=== PATIENT | female | born 1955 ===

== ENCOUNTER 2025-03-28 08:00 | Day surgery (SDC) | payer OTHER ==
[~2025-03-28 08:00] MED LIST: ATORVASTATIN CA40 MG; BRILINTA60 MG PO; CEFAZOLIN SODIUM 1,000 MG VIAL ONE; CEFTRIAXONE SODIUM 2,000 MG VIAL ONE; POVIDONE-IODINE 118 ML BOTT TOP ONE; SYNTHROID100 MCG; TOPROL XL25 M1
[2025-03-28] MEDS ORDERED: LEVOFLOXACIN250 MG PO (10:06)
[2025-03-28] MEDS ORDERED: IBU600 MG PO (10:06)
== END 2025-03-28 14:20 | disposition home or self-care (01) ==
LOC: CIR.AMB 08:00 → U 08:00 → CIR.AMB 10:00
PROVIDERS: ATTEND Obstetrics & Gynecology
DX: N85.02 Endometrial intraepithelial neoplasia [EIN] (principal); N95.0 Postmenopausal bleeding; D25.0 Submucous leiomyoma of uterus; Z88.8 Allergy status to other drugs, medicaments and biological substances